=== PATIENT | male | born 1985 | race Caucasian/White ===

== ENCOUNTER 2021-09-27 16:39 | Outpatient (CLI) | payer SELFPAY ==
[2021-09-27 17:26] LABS: #Basophils 0.1 10x3/uL (0.0-0.2); #Eosinphils 0.1 10x3/uL (0.0-0.5); #Monocytes 0.6 10x3/uL (0.0-1.1); #Neutrophils 4.6 10x3/uL (1.5-8.4); %Basophils 0.8 % (0.0-2.0); %Eosinophils 1.6 % (0.0-6.0); %Lymphocytes 26.7 % (18.0-47.0); %Monocytes 7.8 % (0.0-10.0); Hemoglobin 13.6 g/dL (13.5-17.5); Mean Corpuscular HGB CONC 33.6 g/dL (32.0-36.0); Mean Corpuscular Volume 89.2 fl (81.2-95.1); Mean Platelet Volume 10.4 fl (7.4-10.4); Platelet Count 281 10x3/uL (150-450); RBC Distribution Width 12.5 % (11.5-14.5); Red Blood Cell (RBC) Count 4.54 10x6/uL (4.32-5.72); White Blood Cell (WBC) Count 7.3 10x3/uL (3.5-10.5)
[2021-09-27 17:52] LABS: ALT (SGPT) 18 U/L (8-55); AST (SGOT) 17 U/L (5-34); Albumin 4.6 g/dL (3.5-5.0); Alkaline Phosphatase 77 U/L (40-110); Anion Gap 14 mmol/L (10-20); BUN (Urea Nitrogen) 18 mg/dL (8.9-20.6); Bilirubin, Total 0.4 mg/dL (0.2-1.2); Calc. Creatinine Clearance 0 mL/min (70-130); Calcium 9.8 mg/dL (7.8-10.44); Carbon Dioxide 26 mmol/L (22-29); Chloride 104 mmol/L (98-107); Globulin 2.6 g/dL (2.4-3.5); Glucose 73 mg/dL (70-105); Potassium 4.2 mmol/L (3.5-5.1); Protein, Total 7.2 g/dL (6.0-8.3); Sodium 140 mmol/L (136-145)
== END 2021-09-27 16:40 | disposition home or self-care (01) ==
LOC: LABBT 16:39
PROVIDERS: ATTEND Surgery
DX: Z01.818 Encounter for other preprocedural examination (principal); D17.1 Benign lipomatous neoplasm of skin and subcutaneous tissue of trunk; Z20.822 Contact with and (suspected) exposure to COVID-19
CPT/HCPCS: 80053; 85025; 93005; 93010; U0003; U0005

== ENCOUNTER 2021-10-01 07:41 | Day surgery (SDC) | payer OTHER, SELFPAY ==
[2021-09-29 10:18] VITALS: BMI 25.9
[2021-10-01] MEDS ORDERED: Lidocaine 1% w/Epinephrine 1:100K 20 ML VIAL ONE (08:46)
[2021-10-01] MEDS ORDERED: Bupivacaine 0.25% HCL 30 ML VIAL ONE (08:46)
[2021-10-01] MEDS ORDERED: fentaNYL Citrate/PF 100 MCG/2 ML SYRINGE ONE (08:58)
[2021-10-01] MEDS ORDERED: Meperidine HCl/PF 25 MG/ML VIAL ONE (08:58)
[2021-10-01] MEDS ORDERED: Famotidine/PF 20 mg/2ml Vial ONE (08:58)
[2021-10-01] MEDS ORDERED: Sodium Chloride 0.9% 100 ML ONE (08:59)
[2021-10-01] MEDS ORDERED: CEFAZOLIN 2 GM VIAL ONE (08:59)
[2021-10-01] MEDS ORDERED: Metoclopramide HCl 10 MG/2 ML VIAL ONE ×2 (08:59→09:06)
[2021-10-01] MEDS ORDERED: Dexamethasone 4 mg/ml Vial ONE (08:59)
[2021-10-01] MEDS ORDERED: Ondansetron PF 4 MG/2 ML Vial ONE ×2 (08:59→09:06)
[2021-10-01] MEDS ORDERED: Lidocaine 1% PF 5 ML VIAL ONE (09:06)
[2021-10-01] MEDS ORDERED: Dexamethasone 20 MG/5 ML VIAL ONE (09:06)
[2021-10-01] MEDS ORDERED: Ketorolac Tromethamine 30 MG/ML VIAL ONE (09:06)
[2021-10-01] MEDS ORDERED: PROPOFOL 200 MG/20 ML VIAL ONE (09:06)
[2021-10-01] MEDS ORDERED: ePHEDrine 50 MG/ML VIAL ONE (09:06)
== END 2021-10-01 11:20 | disposition home or self-care (01) ==
LOC: SDC 07:41
PROVIDERS: ATTEND Surgery
PROC: 0JBF0ZZ Excision of Left Upper Arm Subcutaneous Tissue and Fascia, Open Approach (ICD-10-PCS; principal; 2021-10-01)
DX: D17.22 Benign lipomatous neoplasm of skin and subcutaneous tissue of left arm (principal); Z87.891 Personal history of nicotine dependence
CPT/HCPCS: 88304; J0690; J1100; J1885; J2175; J2405; J2704; J2765; J3490; S0020; S0028